=== PATIENT | male | born 1955 | race Caucasian/White ===

== ENCOUNTER 2023-11-22 06:16 | Day surgery (SDC) | payer OTHER, SELFPAY ==
[2023-11-07 06:59] VITALS: BMI 23.2
[2023-11-07 09:04] LABS: Hematocrit 43.3 % (39.0-52.0); Hemoglobin 15.3 g/dL (13.0-18.0); Mean Corp Hgb Conc. 35.3 g/dL (33.0-37.0); Mean Corpuscular Hgb 31.9 pg (27.0-31.0); Mean Corpuscular Volume 90.2 fL (80.0-94.0); Mean Platelet Volume 8.4 fL (7.4-10.4); Platelet Count 200 10^3/uL (130-400); Red Cell Dist. Width 12.3 % (11.5-14.5); White Blood Cell Count 5.4 10^3/uL (4.8-10.8)
[2023-11-07 09:11] LABS: Urine Albumin Negative (Neg - Trace); Urine Bilirubin Negative (Negative); Urine Character Clear (Clear); Urine Color Yellow; Urine Glucose Negative (Negative); Urine Ketone 1+ (Negative); Urine Leukocyte Negative (Negative); Urine Nitrite Negative (Negative); Urine Occult Blood Negative (Negative); Urine Specific Gravity 1.015 (<1.030); Urine Urobilinogen Negative (Neg - 1+)
[2023-11-07 09:36] LABS: INR 0.98
[2023-11-07 09:37] LABS: APTT 29.9 Sec (23.4-35.0)
[2023-11-07 09:42] LABS: Blood Urea Nitrogen 12 mg/dl (9-20); Calcium 9.8 mg/dl (8.4-10.2); Carbon Dioxide 24 mmol/L (22-30); Chloride 103 mmol/L (98-107); Estimated Creatinine Clearance 102 ml/min; Glucose 101 mg/dl (70-99); Potassium 3.9 mmol/L (3.5-5.1); Sodium 133 mmol/L (135-145); eGFR > 60.00
[2023-11-22 08:49] VITALS: BP 155/86
[2023-11-22] MEDS: NORMOSOL-R 1000 IV (09:14)
[2023-11-22 09:22] VITALS: BMI 23.2
[2023-11-22 13:35] VITALS: BP 122/75; BP 155/86
[2023-11-22 13:45] VITALS: BP 123/78
[2023-11-22 14:00] VITALS: BP 128/96
[2023-11-22 14:15] VITALS: BP 145/82
[2023-11-22 14:45] VITALS: BP 150/92
== END 2023-11-22 14:52 | disposition home or self-care (01) ==
LOC: SDS 06:16
PROVIDERS: ATTENDING PHYSICIAN Specialist; FAMILY PHYSICIAN Internal Medicine
DX: N43.41 Spermatocele of epididymis, single (principal); N43.3 Hydrocele, unspecified
CPT/HCPCS: 54840; 88304; 36415; 80048; 81003; 85027; 85610; 85730; 93005

== ENCOUNTER 2025-02-23 06:15 | Day surgery (SDC) | payer OTHER, SELFPAY ==
[2025-02-23 12:43] VITALS: BMI 23.7
[2025-02-23 12:44] VITALS: BMI 23.7
[2025-02-23 12:45] VITALS: BP 130/75
[2025-02-23 16:20] VITALS: BP 125/91
[2025-02-23 16:30] VITALS: BP 130/91
[2025-02-23 16:45] VITALS: BP 135/84
== END 2025-02-23 16:22 | disposition home or self-care (01) ==
LOC: SDS 06:15
PROVIDERS: ATTENDING PHYSICIAN Internal Medicine Gastroenterology
DX: Z12.11 Encounter for screening for malignant neoplasm of colon (principal); D12.0 Benign neoplasm of cecum; D12.2 Benign neoplasm of ascending colon; K63.89 Other specified diseases of intestine; K62.1 Rectal polyp; K64.0 First degree hemorrhoids; Z86.0100 Personal history of colon polyps, unspecified
CPT/HCPCS: 45390; 88305